=== PATIENT | male | born 1975 | race Two or more races ===

== ENCOUNTER 2025-04-16 04:38 | Emergency (ER) | payer OTHER ==
[~2025-04-16] VITALS: Ht 167.6 cm; Wt 81.6 kg
[2025-04-16] MEDS ORDERED: [UNRECOGNIZED DRUG - OTHER] (04:52)
[2025-04-16] MEDS ORDERED: AMLODIPINE-OLM1 EACH (04:52)
[2025-04-16] MEDS ORDERED: TETANUS & DIPHTHERIA TOX,ADULT 0.5 ML VIAL IM STA (05:10)
[2025-04-16 06:22] LABS: INR 1.03
[2025-04-16 06:23] LABS: BASO % 0.3 % (0.1-1.2); EOS # 0.11 (0.04-0.54); EOS % 1.5 % (0.7-7.0); LYMPH # 2.24 (1.18-3.74); LYMPH % 30.2 % (19.3-53.1); MEAN PLATELET VOLUME 10.00 fl (9.4-12.4); MONO # 0.52 (0.24-0.82); MONO % 7.0 % (4.7-12.5); NEUT # 4.48 (1.56-6.13); NEUT % 60.5 % (34.0-71.1); RED CELL DISTRIBUTION WIDTH 12.0 % (11.6-14.4)
[2025-04-16 07:12] LABS: ALT/SGPT 49.0 U/L (12-78); AST/SGOT 26.0 U/L (15-37); BILIRUBIN TOTAL 0.33 mg/dL (0.3-1.2); BUN CREA RATIO 14.0 (7.0-25.0); CREATININE SERUM 1.11 mg/dL (0.70-1.30); GFR 69.84; GLOBULINA 3.5 G/DL (2.4-3.5); GLUCOSE FASTING 160.0 mg/dL (65-100); OSMOLALITY SERUM 282.0 MOSM/KG (275-295)
[2025-04-16 08:43] LABS: URINE APPEARANCE Clear; URINE BILIRRUBIN Negative (NEGATIVE); URINE BLOOD Negative; URINE COLOR Yellow; URINE GLUCOSE Negative (NEGATIVE); URINE KETONE Negative (NEGATIVE); URINE LEUKOCYTE Negative; URINE NITRATE Negative; URINE PROTEIN Negative (NEGATIVE); URINE UROBILINOGEN 0.2 E.U./dl
[2025-04-16 08:47] LABS: URINE BACTERIA 10.7 uL (0.0-1933); URINE RBC 3.5 uL (0.0-20.8); URINE WBC 1.8 uL (0.0-23.2)
[2025-04-16 09:47] LABS: URINE CAST 0.43 uL (0.0-1.40); URINE EPITHELIAL CELLS 0.9 uL (0.0-38.8)
== END 2025-04-16 10:48 | disposition home or self-care (01) ==
LOC: ER 04:38
PROVIDERS: General Practice
DX: S01.81XA Laceration without foreign body of other part of head, initial encounter (principal); X58.XXXA Exposure to other specified factors, initial encounter; Y93.89 Activity, other specified; Y92.89 Other specified places as the place of occurrence of the external cause; Y99.8 Other external cause status; R55 Syncope and collapse; I10 Essential (primary) hypertension
CPT/HCPCS: 12032; 36415; 70450; 72040; 90471; 90714; 93005; 99284; J1670